=== PATIENT | female | born 1975 | race Caucasian/White ===

== ENCOUNTER 2018-11-04 22:05 | Inpatient (IN) | payer OTHER, MEDICAID ==
[2018-11-04 22:49] LABS: ADD MAN DIFF? NO
[2018-11-04 22:54] LABS: WHITE BLOOD COUNT 10.5 10^3/ul (4.8-10.8)
[2018-11-04 22:54] LABS: BASOPHIL # 0.1 10^3/ul (0.0-0.1); BASOPHILS % 0.5 % (0.0-2.0); EOSINOPHILS # 0.1 10^3/ul (0.0-0.5); EOSINOPHILS % 1.1 % (0.0-7.0); HEMATOCRIT 37.1 % (37.0-47.0); HEMOGLOBIN 12.5 g/dl (12.0-16.0); LYMPHOCYTES # 4.6 10^3/ul (0.8-2.9); LYMPHOCYTES % 44.1 % (15.0-51.0); MEAN CORPUSCULAR HEMOGLOBIN 31.2 pg (29.0-33.0); MEAN CORPUSCULAR HGB CONC 33.7 g/dl (32.0-37.0); MEAN CORPUSCULAR VOLUME 92.5 fl (82.0-101.0); MEAN PLATELET VOLUME 11.7 fl (7.4-10.4); MONOCYTE # 0.7 10^3/ul (0.3-0.9); MONOCYTES % 6.4 % (0.0-11.0); NEUTROPHILS % 47.7 % (39.0-77.0); PLATELET COUNT 227 10^3/UL (140-415); RED BLOOD COUNT 4.01 10^6/ul (4.20-5.40); RED CELL DISTRIBUTION WIDTH 12.3 % (11.5-14.5)
[2018-11-04] MEDS: SOD CHLORIDE 0.9% 1,000 ML IV (23:44)
[2018-11-04] MEDS: ONDANSETRON 4 MG INJ IV (23:44)
[2018-11-04] MEDS: morphine 4 MG/ML VIAL IV (23:46)
[2018-11-05 00:04] LABS: ADD UMIC YES; UR ASCORBIC ACID NEGATIVE (NEGATIVE); UR BILIRUBIN (Dip) NEGATIVE (NEGATIVE); UR BLOOD (Dip) 3+ mg/dL (NEGATIVE); UR CLARITY CLEAR (CLEAR); UR COLOR YELLOW (YELLOW); UR GLUCOSE (Dip) NEGATIVE (NEGATIVE); UR KETONES (Dip) NEGATIVE (NEGATIVE); UR LEUKOCYTE ESTERASE (Dip) NEGATIVE Leu/ul (NEGATIVE); UR NITRITE (Dip) NEGATIVE (NEGATIVE); UR RBC 148 /HPF (0-5); UR SPECIFIC GRAVITY (Dip) 1.009 (1.003-1.030); UR TOTAL PROTEIN (Dip) NEGATIVE (NEGATIVE); UR UROBILINOGEN (Dip) NEGATIVE (NEGATIVE); UR WBC 1 /HPF (0-5)
[2018-11-05 02:18] LABS: INR 0.82; PROTIME 11.4 Sec (11.9-14.9); PT RATIO 0.9
[2018-11-05 02:27] LABS: ALANINE AMINOTRANSFERASE 19 IU/L (13-69); ALBUMIN/GLOBULIN RATIO 1.29; ALKALINE PHOSPHATASE 52 IU/L (42-121); ANION GAP 6 (5-13); ASPARTATE AMINO TRANSFERASE 26 IU/L (15-46); BILIRUBIN,INDIRECT 0.1 mg/dl (0-1.1); BILIRUBIN,TOTAL 0.1 mg/dl (0.2-1.3); BLOOD UREA NITROGEN 10 mg/dl (7-20); CALCIUM 9.4 mg/dl (8.4-10.2); CARBON DIOXIDE 27 mmol/L (21-31); CHLORIDE 108 mmol/L (97-110); CREATININE 0.58 mg/dl (0.44-1.00); Estimated GFR > 60 mL/min (>60); GLUCOSE 117 mg/dl (70-220); POTASSIUM 3.8 mmol/L (3.5-5.1); SODIUM 141 mmol/L (135-144); TOTAL PROTEIN 7.1 g/dl (6.1-8.1)
[2018-11-05] MEDS ORDERED: ONDANSETRON 4 MG INJ IV ×2 (04:00→06:30)
[2018-11-05] MEDS ORDERED: ACETAMINOPHEN 325 MG TAB PO (04:00)
[2018-11-05] MEDS ORDERED: CEFAZOLIN 1 GM INJ (06:13)
[2018-11-05] MEDS ORDERED: PROPOFOL 20 ML (06:13)
[2018-11-05] MEDS ORDERED: ONDANSETRON 4 MG INJ (06:13)
[2018-11-05] MEDS ORDERED: MIDAZOLAM 1 MG/ML 2 ML INJ (06:13)
[2018-11-05] MEDS ORDERED: METOCLOPRAMIDE 10 MG INJ (06:13)
[2018-11-05] MEDS ORDERED: KETOROLAC 30 MG INJ (06:15)
[2018-11-05] MEDS ORDERED: FENTAnyl 50 MCG/ML VIAL (06:16)
[2018-11-05] MEDS ORDERED: MEPERIDINE 25 MG INJ IV (06:30)
[2018-11-05] MEDS ORDERED: DIPHENHYDRAMINE 50 MG INJ IV (06:30)
[2018-11-05] MEDS ORDERED: HYDROmorphONE 1 MG/5 ML IV SYRINGE IV ×3 (06:30)
[2018-11-05] MEDS ORDERED: OXYTOCIN 10 UNIT INJ (06:38)
== END 2018-11-05 10:30 | disposition home or self-care (01) | DRG 833 ==
LOC: FTE 22:05 → 2NE 11-05 03:54
PROVIDERS: Obstetrics & Gynecology
PROC: 10D07Z8 Extraction of Products of Conception, Other, Via Natural or Artificial Opening (ICD-10-PCS; principal; 2018-11-05 06:00)
DX: O01.9 Hydatidiform mole, unspecified (principal)
CPT/HCPCS: 36415; 76801; 76817; 80053; 81001; 84702; 85025; 85610; 86900; 86901; 88305; 96374; 96375; 99285-25